=== PATIENT | female | born 1935 | race Caucasian/White ===

== ENCOUNTER 2018-12-18 16:46 | Inpatient (IN) | payer MEDICARE, BC ==
[~2018-12-18] VITALS: Ht 162.6 cm; Wt 68.2 kg
[~2018-12-18 16:46] MED LIST: BAYER CHEWABLE81 MG PO; CATAPRES TTS-20.2 MG TD; CENTRUM COMPLE1 EACH PO; CITRACAL + D E1 EACH PO; COREG 3.1253.125 MG PO; FISH OIL 1,2001 CAP PO; HYDROCHLOROTHIA25 MG PO; PRAVACHOL20 MG PO; TAZTIA XT360 MG PO; TENEX1 MG PO; VASOTEC20 MG PO; VITAMIN B COMPL1 TAB PO; VITAMIN D31000 UNIT PO
[2018-12-18 17:38] LABS: APPEARANCE CLEAR (CLEAR); BILIRUBIN NEGATIVE (NEGATIVE); COLOR STRAW (YELLOW); GLUCOSE NEGATIVE (NEGATIVE); KETONE NEGATIVE (NEGATIVE); NITRITE NEGATIVE (NEGATIVE); PROTEIN NEGATIVE (NEGATIVE); UROBILINOGEN NORMAL (NORMAL)
[2018-12-18 17:40] LABS: BACTERIA FEW /hpf (NONE SEEN); RED CELLS - URINE RARE /hpf (0-5); WHITE CELLS - URINE 0-5 /hpf (0-5)
[2018-12-18 17:58] LABS: BASOPHILS 0.4 % (0-2); EOSINOPHILS 1.2 % (0-7); HEMATOCRIT 34.1 % (36.0-48.0); HEMOGLOBIN 11.9 g/dL (12-16); IMMATURE GRANULOCYTES 0.1 % (0-5); LYMPHOCYTES 24.1 % (15-50); MCHC 34.9 g/dL (31.0-37.0); MCV 91.7 fL (80.0-100.0); MEAN PLATELET VOLUME 9.7 fL (7.4-10.4); MONOCYTES 11.9 % (2-11); NEUTROPHILS 62.3 % (40-80); PLATELET COUNT 190 10x3/uL (130-400); RBC 3.72 10x6/uL (4.00-5.40); RDW 13.5 % (11.5-14.5); WBC 8.1 10x3/uL (4.8-10.8)
[2018-12-18 18:20] LABS: ALBUMIN 3.1 g/dL (3.4-5.0); ANION GAP 12.5 mmol/L (8-16); BILIRUBIN - TOTAL 0.88 mg/dL (0.2-1.3); CALCIUM 8.7 mg/dL (8.5-10.1); CARBON DIOXIDE 24.9 mmol/L (21.0-32.0); CREATININE - SERUM 0.8 mg/dL (0.6-1.3); POTASSIUM - SERUM 3.4 mmol/L (3.5-5.1); PROTEIN - SERUM 6.8 g/dL (6.4-8.2)
--- NOTE | 2018-12-18 19:22 | NUR ---
PT TRANSPORTED TO THE ROOM BY THE TECH AT THIS TIME
--- NOTE | 2018-12-18 19:45 | NUR ---
PATIENT RESTING IN BED WITH FAMILY AT BEDSIDE. PATIENT REQUESTED KLEENEX. PATIENT DENIES OTHER NEEDS AT THIS TIME. BED IN LOWEST POSITION AND CALL LIGHT WITHIN REACH. ENCOURAGED THE PATIENT TO CALL IF SHE HAS NEEDS. WILL CONTINUE TO MONITOR.
--- NOTE | 2018-12-18 20:00 | MORECARE ---
CASE MANAGEMENT DISCHARGE SUMMARY PATIENT: RUDOLPH GODWIN UNIT: [id number] ADM DATE: 12/18/18 AGE: 83 : 35 SEX: F ROOM/BED: D.2202 AUTHOR: YAMILA DOMINGUEZ PHYSICIAN: REFERRING PHYSICIAN: ORION HOBBS MD DATE OF SERVICE: 12/18/18 Discharge Plan Patient Name: RUDOLPH GODWIN Facility: [facility]:[place] : 1935 Planned Disposition: Anticipated Discharge Date: Discharge Date: Expected LOS: Initial Reviewer: [email or web address] Initial Review Date: 12/18/2018 Generated: 12/18/18 9:00 pm Patient Name: RUDOLPH GODWIN Page [id number] at 1999 All edits/amendments must be made on the electronic document DICTATION DATE: 12/18/181999 PRODUCT SAFETY ADMINISTRATOR: ANANDA 12/18/181999 RPT#: [id number] DC DATE: STATUS: ADM IN [facility] [address] [place] [address] END OF REPORT
--- NOTE | 2018-12-18 20:17 | NUR ---
CALLED FOR HEART MONITOR, NO MONITOR AVAILABLE AT THIS TIME. PATIENT ADDED TO WAIT LIST.
[2018-12-18 22:36] VITALS: BP 126/48; BMI 27.1
[2018-12-18] MEDS ORDERED: NORMODYNE / TR100 MG PO (22:47)
[2018-12-18] MEDS ORDERED: NORVASC10 MG PO (22:48)
[2018-12-18] MEDS ORDERED: FEXOFENADINE H180 MG PO (22:49)
[2018-12-18] MEDS ORDERED: MOBIC7.5 MG PO (22:49)
[2018-12-18] MEDS ORDERED: ASCORBIC ACID500 MG PO (22:50)
[2018-12-19 04:00] VITALS: BP 126/64
[2018-12-19 04:49] LABS: BASOPHILS 0.4 % (0-2); EOSINOPHILS 0.7 % (0-7); HEMATOCRIT 31.2 % (36.0-48.0); HEMOGLOBIN 10.8 g/dL (12-16); LYMPHOCYTES 15.8 % (15-50); MCH 31.6 pg (26.0-34.0); MCHC 34.6 g/dL (31.0-37.0); MCV 91.2 fL (80.0-100.0); MEAN PLATELET VOLUME 9.9 fL (7.4-10.4); MONOCYTES 10.6 % (2-11); NEUTROPHILS 72.5 % (40-80); PLATELET COUNT 191 10x3/uL (130-400); RBC 3.42 10x6/uL (4.00-5.40); RDW 13.5 % (11.5-14.5); WBC 8.1 10x3/uL (4.8-10.8)
[2018-12-19 05:25] LABS: ALBUMIN 2.8 g/dL (3.4-5.0); ALKALINE PHOSPHATASE 33 U/L (46-116); ALT (SGPT) 40 U/L (10-68); BILIRUBIN - TOTAL 0.82 mg/dL (0.2-1.3); CALCIUM 8.1 mg/dL (8.5-10.1); CARBON DIOXIDE 23.7 mmol/L (21.0-32.0); CHLORIDE - SERUM 107 mmol/L (98-107); CKMB 0.7 U/L (0.0-3.6); CREATINE KINASE 25 UL (21-215); CREATININE - SERUM 0.7 mg/dL (0.6-1.3); GLUCOSE 115 mg/dL (74-106); POTASSIUM - SERUM 3.4 mmol/L (3.5-5.1); PROTEIN - SERUM 6.3 g/dL (6.4-8.2); SODIUM 142 mmol/L (136-145); TROPONIN-I < 0.017 ng/mL (0.000-0.060); eGFR NON AFRICAN AMERICAN 85 mL/min (90-120)
[2018-12-19 05:27] LABS: CALC OSMOLALITY 285 mosm/kg (275-300); UREA NITROGEN 19 mg/dL (7-18)
[2018-12-19 08:53] VITALS: BP 102/69
--- NOTE | 2018-12-19 09:23 | NUR ---
PATIENT SITTING UP EATING BREAKFAST WITH NO COMPLAINTS OR SIGNS OF DISTRESS. IV INTACT. CALL LIGHT WITHIN REACH.
[2018-12-19 10:44] LABS: % SATURATION 15 % (15-55); IRON 32 ug/dl (35-150); TOTAL IRON BIND CAPACITY 209 ug/dl (260-445); UNSAT IRON BIND CAPACITY 177 ug/dl (150-375)
[2018-12-19 13:25] VITALS: BP 161/59
[2018-12-19 17:26] VITALS: BP 130/72
--- NOTE | 2018-12-19 19:45 | NUR ---
PT SITTING UP IN BED, NO SIGNS OF DISTRESS. ALERT AND ORIENTED. O2 3.4L/NC. LUNGS DIMINISHED ON AUSCULTATION. IV RIGHT HAND SL. PT STATES NO COMPLAINTS OR NEEDS AT THIS TIME. SCDS IN PLACE. HR 75 CONTROLLED AFIB PER TELE. CL IN REACH, WILL CONTINUE TO MONITOR
[2018-12-19 20:00] VITALS: BP 123/65
--- NOTE | 2018-12-19 20:30 | NUR ---
ASSISTED PT TO BATHROOM, PT BECAME SHORT OF BREATH. O2 85%. INSTRUCTED PT TO TAKE DEEP BREATHS THROUGH HER NOSE. BREATHING BECAME MORE EVEN, UNLABORED. O2 90%. WILL CONTINUE TO MONITOR
--- NOTE | 2018-12-19 21:00 | NUR ---
PT O2 85%. PAGED RESP. O2 INCREASED TO 6L/HFNC W/ HUMIDIFICATION. 02 90% WHEN RECHECKED. WILL CONTINUE TO MONITOR
--- NOTE | 2018-12-19 23:00 | NUR ---
PT O2 CONTINUING TO DROP TO 85%. RESP TITRATED O2 UP TO 11L/HFNC TO REACH 90%. PT BREATHING BECAME MORE EVEN, STATED SHE FELT A LITTLE BETTER. STATES IT STILL FELT LIKE SHE COULD NOT TAKE A COMPLETE DEEP BREATH. WILL CONTINUE TO MONITOR
[2018-12-20] VITALS (21 sets, daily range): BP systolic 109–148; BP diastolic 56–83; Ht 162.6 cm; Wt 68.2 kg
--- NOTE | 2018-12-20 00:30 | NUR ---
PAGED WILBERT PAL ENGINEERING TEST SPECIALIST FOR 02 <90%. ORDERS TO CONSULT PULMONOLOGY AND CHEST XRAY
--- NOTE | 2018-12-20 03:00 | NUR ---
PT BECAME MORE SHORT OF BREATH, ANXIOUS. TURNING RED IN THE FACE. STATES IT IS HARDER FOR HER TO TAKE A DEEP BREATH. O2 82% ON 15L NONREBREATHER. PAGED DR. DELGADO. ORDERS TO GET BMP, D DIMER, GIVE K 20MEQ PO AND 40MG LASIX IV, DUONEB RQ4H, BIPAP, AND TRANSFER TO ICU. REPORT CALLED TO PENNIE ALVAREZ FOR ROOM 2306. PT TRANSFERED VIA BED.
--- NOTE | 2018-12-20 04:00 | NUR ---
Received patient from 2202 to 2306, connected to monitor. Patient placed on BiPAP 100% per orders with O2 sat 99%, Furosemide/K+ given as ordered. S1/S2 noted Controlled Afib on telemetry with HR 90. Breathing is labored/dyspneic, crackles noted bilateral upper and mid with diminished lower. Schofield placed, immediate return of concentrated yellow urine. All pulses palpable with cap refill < 3 sec, skin warm/dry. Slight weakness noted all extremities, full ROM all extremities. Patient denies pain or other needs at this time, see flowsheet for details. All VSS and will continue to monitor.
[2018-12-20 04:52] LABS: BASOPHILS 0.2 % (0-2); HEMATOCRIT 36.3 % (36.0-48.0); HEMOGLOBIN 12.5 g/dL (12-16); IMMATURE GRANULOCYTES 0.2 % (0-5); LYMPHOCYTES 10.6 % (15-50); MCHC 34.4 g/dL (31.0-37.0); MCV 92.8 fL (80.0-100.0); MONOCYTES 12.1 % (2-11); NEUTROPHILS 75.9 % (40-80); PLATELET COUNT 229 10x3/uL (130-400); RBC 3.91 10x6/uL (4.00-5.40); RDW 13.7 % (11.5-14.5)
[2018-12-20 05:03] LABS: WBC 13.2 10x3/uL (4.8-10.8)
--- NOTE | 2018-12-20 05:07 | NUR ---
BiPAP decreased to 80% by RT, no s/s of breathing distress at this time.
[2018-12-20 05:23] LABS: ANION GAP 15.4 mmol/L (8-16); CALCIUM 8.7 mg/dL (8.5-10.1); CARBON DIOXIDE 22.5 mmol/L (21.0-32.0); CREATININE - SERUM 0.8 mg/dL (0.6-1.3); MAGNESIUM - SERUM 1.7 mg/dL (1.8-2.4); POTASSIUM - SERUM 3.9 mmol/L (3.5-5.1); THYROID STIMULATING HORMONE 1.49 uIU/mL (0.36-3.74)
[2018-12-20 05:29] LABS: APPEARANCE CLEAR (CLEAR); BILIRUBIN NEGATIVE (NEGATIVE); COLOR DK YELLOW (YELLOW); GLUCOSE NEGATIVE (NEGATIVE); KETONE SMALL mg/dL (NEGATIVE); NITRITE NEGATIVE (NEGATIVE); PROTEIN 2+ mg/dL (NEGATIVE); UROBILINOGEN NORMAL (NORMAL)
[2018-12-20 05:30] LABS: BACTERIA FEW /hpf (NONE SEEN); EPITHELIAL CELLS 0-5 /hpf (0-5); MUCUS <1+ /lpf (NONE SEEN); RED CELLS - URINE 0-5 /hpf (0-5); WHITE CELLS - URINE 0-5 /hpf (0-5)
--- NOTE | 2018-12-20 07:33 | NUR ---
UP IN BED AWAKE ON BIPAP AT THIS TIME. FAMILY AT BEDSIDE. NO ACUTE DISTRES NOETD. PT REQUESTED TO HAVE DRINK OF WATER. TEACHING PERFORMED TO PT THAT SHE CURRENTLY CANNOT TOLERATE REMOVING THE BIPAP SINCE IT IS CURRENTLY AT 80%. CALL LIGHT IN REACH. WILL CONTINUE PLAN OF CARE.
--- NOTE | 2018-12-20 08:57 | NUR ---
UP IN BED AWAKE AT THIS TIME VISITING WITH FAMILY. CURRENTLY ON HIGH FLOW NASAL CANNULA AT 15L, NO SHORTNESS OF BREATH NOTED, OXYGEN SATRUATION AT 97%. NO ACUTE DISTRESS NOTED. WILL CONTINUE PLAN OF CARE.
--- NOTE | 2018-12-20 10:14 | NUR ---
CODE STATUS DISCUSSED WITH FAMILY AND PT. PT STATED SHE WISHES TO REMAIN A FULL CODE.
[2018-12-20 10:21] LABS: FOLATE (FOLIC ACID) - SERUM >20.0 ng/mL (>3.0)
[2018-12-20 10:51] LABS: PRO BNP 2192 pg/mL (0-450); TROPONIN-I < 0.017 ng/mL (0.000-0.060)
--- NOTE | 2018-12-20 11:22 | NUR ---
PER DR DELGADO, USE BIPAP PRN.
--- NOTE | 2018-12-20 13:02 | NUR ---
UP IN BED AWAKE AT THIS TIME. DENIES ANY NEEDS. NO ACUTE DISTERSS NOTED. WILL CONTINUE PLAN OF CARE.
--- NOTE | 2018-12-20 14:38 | NUR ---
RESTING IN BED AT THIS TIME, RESPIRATIONS STEADY AND UNLABORED. NO ACUTE DISTRESS NOTED. AWAKENS EASILY TO VOICE. CALL LIGHT IN REACH. WILL CONTINUE PLAN OF CARE.
--- NOTE | 2018-12-20 16:16 | NUR ---
PT STATED SHE FEELS LIKE SHE NEEDS TO USE TOILET, CALLED EVS FOR A BEDSIDE TOILET, WAITING TO RECIEVE. PT AWAKE IN BED AT THIS TIME. NO ACTUE DISTRESS NTOED. FAMILY AT BEDSIDE. WILL CONTINUE PLAN OF CARE.
--- NOTE | 2018-12-20 17:07 | NUR ---
BEDSIDE TOILET PRIVIDED TO PT, SHE STAES SHE CURRENTLY NO LONGER FEELS THE URGE FOR BOWEL MOVEMENT, BUT MIGHT TRY LATER. FAMILY AT BEDSIDE. NO ACUTE DISTRESS NOTED. CALL LIGHT IN REACH. WILL CONTINUE PLAN OF CARE.
--- NOTE | 2018-12-20 18:33 | MORECARE ---
CASE MANAGEMENT DISCHARGE SUMMARY PATIENT: RUDOLPH GODWIN UNIT: [id number] ADM DATE: 12/18/18 AGE: 83 : 35 SEX: F ROOM/BED: D.2306 AUTHOR: YAMILA DOMINGUEZ PHYSICIAN: REFERRING PHYSICIAN: ORION HOBBS MD DATE OF SERVICE: 12/20/18 Discharge Plan Patient Name: RUDOLPH GODWIN Facility: [facility]:[place] : 1935 Planned Disposition: Home Anticipated Discharge Date: Discharge Date: Expected LOS: Initial Reviewer: [email or web address] Initial Review Date: 12/20/2018 Generated: 12/20/18 7:33 pm Last DP export: 12/18/18 7:00 p Patient Name: RUDOLPH GODWIN Page [id number] at 1833 All edits/amendments must be made on the electronic document DICTATION DATE: 12/20/181832 DIRECTOR FRAUD: ANANDA 12/20/181832 RPT#: [id number] DC DATE: STATUS: ADM IN [facility] [address] [place] [address] END OF REPORT
--- NOTE | 2018-12-20 18:41 | MORECARE ---
CASE MANAGEMENT DISCHARGE SUMMARY PATIENT: RUDOLPH GODWIN UNIT: [id number] ADM DATE: 12/18/18 AGE: 83 : 35 SEX: F ROOM/BED: D.2306 AUTHOR: ANGELICA,DOC PHYSICIAN: REFERRING PHYSICIAN: ORION HOBBS MD DATE OF SERVICE: 12/20/18 Discharge Plan Patient Name: RUDOLPH GODWIN Facility: [facility]:[place] : 1935 Planned Disposition: Home Anticipated Discharge Date: Discharge Date: Expected LOS: Initial Reviewer: [email or web address] Initial Review Date: 12/20/2018 Generated: 12/20/18 7:41 pm Comments DCP- Discharge Planning Updated by [email or web address]: Kristine Sousa on 12/20/18 5:[address] Patient Name: RUDOLPH GODWIN Admission Status: ER Accout number: [id number] Admission Date: 12-18-2018 : 1935 Admission Diagnosis: Attending: ORION HOBBS Current LOS: 2 Anticipated DC Date: Planned Disposition: Home Primary Insurance: MEDICARE A & B Discharge Planning Comments: CM met with patient at bedside. Patient states she plans on returning to her home with her after discharge. Patient states that she has walker and shower chair in the home. Patient states she has had [facility] in the past. Patient denies any discharge needs at this time. CM will continue to follow and assist as needed with discharge planning / needs. Benzol Still Operator: Kristine Sousa DCPIA - Discharge Planning Initial Assessment Updated by [email or web address]: Kristine Sousa on 12/20/18 6:33 pm * Is the patient Alert and Oriented? Yes * How many steps to enter\exit or inside your home? * PCP Kimberly Figueroa- [facility] * Pharmacy [facility] * Preadmission Environment Home with Family * ADLs Independent * Equipment Walker * Other Equipment shower chair * List name and contact numbers for known caregivers / representatives who currently or will assist patient after discharge: Sondra Lizarraga - daughter- [phone] * Verbal permission to speak to the caregivers and representatives has been obtained from the patient. N/A * Community resources currently utilized None * Additional services required to return to the preadmission environment? No * Can the patient safely return to the preadmission environment? Yes * Has this patient been hospitalized within the prior 30 days at any hospital? No Last DP export: 12/20/18 5:33 p Patient Name: RUDOLPH GODWIN Page [id number] at 1841 All edits/amendments must be made on the electronic document DICTATION DATE: 12/20/181839 BAG MACHINE SET UP OPERATOR: ANANDA 12/20/181839 RPT#: [id number] DC DATE: STATUS: ADM IN [facility] [address] [place] [address] END OF REPORT
--- NOTE | 2018-12-20 19:40 | NUR ---
RECEIVED PATIENT FROM DAY SHIFT RN. MARIO Colin3. JOÃO. DENIES PAIN AT THIS TIME. INITIAL SHIFT ASSESSMENT COMPLETED, SEE FLOWSHEET. VSS. WILL MONITOR CLOSELY THROUGH OUT THE NIGHT.
--- NOTE | 2018-12-20 21:00 | NUR ---
PM MEDS GIVEN PEER MD ORDERS, SEE JAN. VSS. DAUGHTER AT BEDSIDE. WILL CTM.
--- NOTE | 2018-12-20 23:00 | NUR ---
NEW MED ORDERS RECEIVED AFTER PHARMACY HOURS, WAITING ON MACHINE TAILER. SHIFT REASSESSMENT COMPLETED, SEE FLOWSHEET. VSS. PATIENT SLEEPING AT THIS TIME. WILL CONTINUE TO MONITOR CLOSELY.
[2018-12-21] VITALS (25 sets, daily range): BP systolic 110–150; BP diastolic 55–105
--- NOTE | 2018-12-21 01:10 | NUR ---
NO ACUTE CHANGES NOTED. VSS. PATIENT SLEEPING AT THIS TIME. WILL CTM.
--- NOTE | 2018-12-21 03:25 | NUR ---
REASSESSMENT COMPLETED, SEE FLOWSHEET. NO ACUTE CHANGES NOTED. VSS. WILL CTM.
[2018-12-21 03:50] LABS: BASOPHILS 0.2 % (0-2); EOSINOPHILS 2.5 % (0-7); HEMATOCRIT 32.4 % (36.0-48.0); HEMOGLOBIN 11.1 g/dL (12-16); IMMATURE GRANULOCYTES 0.1 % (0-5); MCH 31.5 pg (26.0-34.0); MCHC 34.3 g/dL (31.0-37.0); MEAN PLATELET VOLUME 9.6 fL (7.4-10.4); NEUTROPHILS 72.2 % (40-80); PLATELET COUNT 207 10x3/uL (130-400); RBC 3.52 10x6/uL (4.00-5.40); RDW 13.6 % (11.5-14.5)
[2018-12-21 04:01] LABS: WBC 8.8 10x3/uL (4.8-10.8)
[2018-12-21 04:09] LABS: ANION GAP 14.7 mmol/L (8-16); CALCIUM 8.1 mg/dL (8.5-10.1); CARBON DIOXIDE 23.8 mmol/L (21.0-32.0); CREATININE - SERUM 0.9 mg/dL (0.6-1.3); MAGNESIUM - SERUM 1.5 mg/dL (1.8-2.4); PHOSPHOROUS 2.1 mg/dL (2.5-4.9); POTASSIUM - SERUM 3.5 mmol/L (3.5-5.1)
--- NOTE | 2018-12-21 05:34 | NUR ---
NO ACUTE CHANGES NOTED. VSS. PATIENT HAS SLEPT OFF AND ON THROUGH OUT THE NIGHT. DAUGHTER IN WAITING ROOM HAS STOPPED IN TO CHECK ON PATIENT A COUPLE OF TIMES LAST NIGHT. WILL CTM.
--- NOTE | 2018-12-21 13:07 | NUR ---
Nutrition follow-up: Diet: low sodium PO intake 25-50% of meals Labs reviewed Wt: 170# continues to diurese RDN following.
--- NOTE | 2018-12-21 13:38 | NUR ---
0700 AWAKE NO C/O PAIN ASSESSMENT COMPLETE EXPIRATORY WHEEZING NOTED 02 AT 11L HIGH FLOW
--- NOTE | 2018-12-21 13:39 | NUR ---
0900 RESTING QUIETLY AFTER BREAKFAST
--- NOTE | 2018-12-21 13:40 | NUR ---
1100 URINGE SPECIMEN COLLECTED FOR CULTLURE AND SENT TO LAB
--- NOTE | 2018-12-21 13:41 | NUR ---
1300 VISITING WITH GRANDDAUGHTER AT BEDSIDE NO DISTRESS NOTED
--- NOTE | 2018-12-21 15:25 | NUR ---
1500 ASSISTED UP TO BSC PASSING FLALTUS NO BM NOTED ASSISTED BACK TO BED
--- NOTE | 2018-12-21 19:00 | NUR ---
RECEIVED PATIENT FROM DAY SHIFT RN, RESP AT BEDSIDE GIVING A BREATHING TREATMENT. INITIAL SHIFT ASSESSMENT COMPLETED, SEE FLOWSHEET. VSS. WILL MONITOR CLOSELY THROUGH OUT THE NIGHT.
--- NOTE | 2018-12-21 19:21 | NUR ---
1830 STARTED LASIX GTT AT 10 ML/HOUR
--- NOTE | 2018-12-21 21:00 | NUR ---
NO ACUTE CHANGES NOTED. VSS. PM MEDS GIVEN PER MD ORDERS, SEE MAR. FAMILY AT BEDSIDE. WILL CTM.
--- NOTE | 2018-12-21 23:00 | NUR ---
PATIENT RESTING BUT AWAKE, DENIES ANY PAIN OR DISCOMFORT AT THIS TIME. REASSESSMENT COMPLETED, SEE FLOWSHEET. VSS. WILL CTM.
[2018-12-22] VITALS (24 sets, daily range): BP systolic 91–136; BP diastolic 44–115
--- NOTE | 2018-12-22 01:10 | NUR ---
PATIENT APPEARS TO BE RESTING COMFORTABLY. NO ACUTE CHANGES NOTED. VSS. WILL CTM.
--- NOTE | 2018-12-22 03:23 | NUR ---
REASSESSMENT COMPLETED, SEE FLOWSHEET. VSS. PATIENT APPEARS TO BE RESTING COMFORTABLY. WILL CTM.
[2018-12-22 04:45] LABS: BASOPHILS 0.5 % (0-2); EOSINOPHILS 4.2 % (0-7); HEMATOCRIT 34.7 % (36.0-48.0); HEMOGLOBIN 12.1 g/dL (12-16); IMMATURE GRANULOCYTES 0.1 % (0-5); LYMPHOCYTES 18.6 % (15-50); MCH 31.7 pg (26.0-34.0); MCHC 34.9 g/dL (31.0-37.0); MCV 90.8 fL (80.0-100.0); MEAN PLATELET VOLUME 9.5 fL (7.4-10.4); MONOCYTES 9.7 % (2-11); NEUTROPHILS 66.9 % (40-80); RBC 3.82 10x6/uL (4.00-5.40); RDW 13.5 % (11.5-14.5)
[2018-12-22 04:52] LABS: PLATELET COUNT 274 10x3/uL (130-400)
--- NOTE | 2018-12-22 05:00 | NUR ---
PATIENT APPEARS TO BE RESTING COMFORTABLY. VSS. NO ACUTE CHANGES NOTED. SON AT BEDSIDE. WILL CTM.
[2018-12-22 05:05] LABS: ANION GAP 13.6 mmol/L (8-16); CALCIUM 8.1 mg/dL (8.5-10.1); CARBON DIOXIDE 26.4 mmol/L (21.0-32.0); CREATININE - SERUM 0.9 mg/dL (0.6-1.3); MAGNESIUM - SERUM 1.6 mg/dL (1.8-2.4); PHOSPHOROUS 2.3 mg/dL (2.5-4.9)
--- NOTE | 2018-12-22 08:34 | NUR ---
0700 PT RECIEVED IN BED, ALERT AND ORIENTED O2 9L VIA HIGH FLOW CANNULA, HR 70S CONTROLLED AFIB, VSS, DENIES PAIN R HAND PIV WITH LASIX 10ML/HR, TANNER DRAINING YELLOW URINE, REPOSITIONED, DENIES NEEDS 0830 TOOK AM MEDS AND ATE 50% BREAKFAST WITHOUT DIFFICULTY, CLARIFIED LASIX ORDER WITH DR DELGADO AND DCD Q12 LASIX, FAMILY AT BEDSIDE AND DENY ANY NEEDS, WILL CONTINUE TO MONITOR
--- NOTE | 2018-12-22 16:57 | NUR ---
1100 PT REPOSITIONED, DENIES PAIN AND ALL NEEDS, WEANING O2 TOLERATED 1300 ATE 75% LUNCH, TOLERATED WELL, REPOSITIONED 1500 REPOSITIONED, DENIES ALL NEEDS, PARTIAL LINEN CHANGE, WILL CONTINUE TO MONITOR 1600 FAMILY HERE FOR VISITATION BUT PT ASLEEP SO STATED THEY WOULD BE LEAVING AND ANOTHER FAMILY MEMBER WOULD BE HERE SHORTLY 1700 REPOSITIONED AND DINNER TRAY SERVED, DENIES PAIN AND ALL NEEDS, WILL CONTINUE TO MONITOR
--- NOTE | 2018-12-22 19:00 | NUR ---
RECEIVED PATIENT FROM DAY SHIFT RN, MARIO X3. JOÃO. DENIES ANY PAIN AT THIS TIME. INITIAL SHIFT ASSESSMENT COMPLETED, SEE FLOWSHEET. VSS. PATIENT PLEASANT AND COOPERATIVE. WILL MONITOR CLOSELY THROUGH OUT THE NIGHT.
--- NOTE | 2018-12-22 21:00 | NUR ---
PM MEDS GIVEN PER MD ORDERS, SEE JAN. DAUGHTER AT BEDSIDE. VSS. WILL CTM.
--- NOTE | 2018-12-22 23:26 | NUR ---
NO ACUTE CHANGES NOTED. VSS. REASSESSMENT COMPLETED, SEE FLOWSHEET. WILL CTM.
[2018-12-23] VITALS (24 sets, daily range): BP systolic 96–157; BP diastolic 52–96
--- NOTE | 2018-12-23 01:00 | NUR ---
NO ACUTE CHANGES NOTED. PATIENT STILL SLEEPING AT THIS TIME. WILL CTM.
--- NOTE | 2018-12-23 03:00 | NUR ---
REASSESSMENT COMPLETED, SEE FLOWSHEET. VSS. PATIENT APPEARS TO BE RESTING COMFORTABLY. WILL CTM.
[2018-12-23 03:10] LABS: MYCOPLASMA PNEUMO IGG 369 U/mL (0-99)
[2018-12-23 03:58] LABS: BASOPHILS 0.4 % (0-2); HEMATOCRIT 33.8 % (36.0-48.0); HEMOGLOBIN 12.1 g/dL (12-16); IMMATURE GRANULOCYTES 0.2 % (0-5); LYMPHOCYTES 23.3 % (15-50); MCH 31.9 pg (26.0-34.0); MCHC 35.8 g/dL (31.0-37.0); MCV 89.2 fL (80.0-100.0); MEAN PLATELET VOLUME 9.2 fL (7.4-10.4); MONOCYTES 12.2 % (2-11); NEUTROPHILS 57.9 % (40-80); PLATELET COUNT 252 10x3/uL (130-400); RBC 3.79 10x6/uL (4.00-5.40); RDW 13.3 % (11.5-14.5)
[2018-12-23 04:12] LABS: CALCIUM 7.7 mg/dL (8.5-10.1); CARBON DIOXIDE 29.4 mmol/L (21.0-32.0); CREATININE - SERUM 0.9 mg/dL (0.6-1.3); MAGNESIUM - SERUM 1.4 mg/dL (1.8-2.4); PHOSPHOROUS 2.7 mg/dL (2.5-4.9); POTASSIUM - SERUM 3.4 mmol/L (3.5-5.1)
--- NOTE | 2018-12-23 05:00 | NUR ---
PATIENT AWAKE, STATES THAT SHE SLEPT GOOD LAST NIGHT. VSS. WILL CTM.
[2018-12-23 08:19] LABS: ANA REFLEX - DIRECT Negative (Negative)
--- NOTE | 2018-12-23 09:19 | NUR ---
Nutrition follow-up: Diet: low sodium PO Intake 50-75% of meals; improved Labs reviewed Wt: 158# May move to floor today. RDN following.
--- NOTE | 2018-12-23 09:21 | NUR ---
0700 AWAKE, ALERT DENIES PAIN BREAKFAST TRAY SERVED
--- NOTE | 2018-12-23 09:30 | NUR ---
0900 APPETITE FAIR DENIES PAIN REPOSITIONED IN BED PULLED UP STATES SHE WANTS NAP
--- NOTE | 2018-12-23 19:30 | NUR ---
RECIEVED CARE OF PT, ASSESSMENT PER FLOWSHEET. PT ALERT AND ORIENTED, ON 6L HFNC, PPP, TANNER CATH PATENT, A-FIB ON MONITOR, PT POSITIONED FOR COMFORT SUPPORTED WITH PILLOWS, VSS.
--- NOTE | 2018-12-23 21:50 | NUR ---
PT DAUGHTER AT BEDSIDE, PT ABLE TO VISIT EASILY IN NO APPARENT DISTRESS, FRESH WATER PROVIDED PER REQUEST, CONT POC.
--- NOTE | 2018-12-23 23:30 | NUR ---
REASSESSMENT PER FLOWSHEET, NO ACUTE CHANGES NOTED, RHYTHM VARIABLE BETWEEN ATRIAL FIB AND FLUTTER, VSS, CONT TO MONITOR.
[2018-12-24] VITALS (15 sets, daily range): BP systolic 99–136; BP diastolic 53–94
--- NOTE | 2018-12-24 01:45 | NUR ---
TURNED DOWN TO 4L PER RT, PT RESTING IN NO APPARENT DISTRES, VSS.
--- NOTE | 2018-12-24 03:53 | NUR ---
PT RESTING IN BED WITH EYES CLOSED, VSS, CONT POC.
[2018-12-24 04:20] LABS: BASOPHILS 0.5 % (0-2); HEMATOCRIT 35.6 % (36.0-48.0); HEMOGLOBIN 12.8 g/dL (12-16); IMMATURE GRANULOCYTES 0.3 % (0-5); LYMPHOCYTES 24.6 % (15-50); MCH 31.7 pg (26.0-34.0); MCV 88.1 fL (80.0-100.0); MEAN PLATELET VOLUME 9.1 fL (7.4-10.4); NEUTROPHILS 58.6 % (40-80); PLATELET COUNT 268 10x3/uL (130-400); RBC 4.04 10x6/uL (4.00-5.40); RDW 12.9 % (11.5-14.5); WBC 7.9 10x3/uL (4.8-10.8)
[2018-12-24 04:35] LABS: ANION GAP 11.6 mmol/L (8-16); CALCIUM 8.2 mg/dL (8.5-10.1); CARBON DIOXIDE 29.6 mmol/L (21.0-32.0); CREATININE - SERUM 0.9 mg/dL (0.6-1.3); MAGNESIUM - SERUM 1.6 mg/dL (1.8-2.4); POTASSIUM - SERUM 3.2 mmol/L (3.5-5.1)
--- NOTE | 2018-12-24 05:24 | NUR ---
PT POSITIONED FOR COMFORT SUPPORTED WITH PILLOWS, DENIES ANY NEEDS AT THIS TIME, CALL LIGHT IN REACH, BED LOW.
--- NOTE | 2018-12-24 14:37 | NUR ---
CALLING REPORT TO MED III NURSE.
--- NOTE | 2018-12-24 15:00 | NUR ---
RECIEVED TO ROOM 1206 FROM ICU VIA WC. SL TO R UPPER ARM. O2 2.5L NC IN USE. O2 SAT 96%. FAMILY AT BEDSIDE. DENIES ANY NEEDS AT THIS TIME.
--- NOTE | 2018-12-24 18:00 | NUR ---
VISITING WITH FAMILY MEMBERS AT BEDSIDE. O2 SAT CHECKED PER PATIENT REQUEST. O2 SAT 96%. DENIES ANY FURTHER NEEDS AT THIS TIME.
--- NOTE | 2018-12-24 20:25 | NUR ---
PATIENT RESTING BED WITH C/O HER NOSE BEING DRY FROM THE O2. I TOLD THE PATIENT THAT WE WOULD ADD A HUMIDIFIER TO HER OXYGEN TO HELP. PATIENT VERBALIZED UNDERSTANDING. PATIENT DENIES OTHER NEEDS AT THIS TIME. BED IN LOWEST POSITION AND CALL LIGHT WITHIN REACH. ENCOURAGED THE PATIENT TO CALL IF SHE HAS NEEDS. WILL CONTINUE TO MONITOR.
[2018-12-25] VITALS: BP 131/63
--- NOTE | 2018-12-25 03:26 | NUR ---
PATIENT RESTING IN BED WITH EYES CLOSED AND NO S/S OF DISTRESS. BED IN LOWEST POSITION AND CALL LIGHT WITHIN REACH. WILL CONTINUE TO MONITOR.
[2018-12-25 04:00] VITALS: BP 129/52
[2018-12-25 07:13] LABS: ANION GAP 12.6 mmol/L (8-16); CALCIUM 8.7 mg/dL (8.5-10.1); CARBON DIOXIDE 29.1 mmol/L (21.0-32.0); CREATININE - SERUM 0.8 mg/dL (0.6-1.3); MAGNESIUM - SERUM 1.7 mg/dL (1.8-2.4)
[2018-12-25 07:14] LABS: POTASSIUM - SERUM 3.7 mmol/L (3.5-5.1)
[2018-12-25 08:05] VITALS: BP 116/43
--- NOTE | 2018-12-25 08:14 | NUR ---
PT ALERT X 4. BREATH SOUNDS CLEAR BILAT, PT COUGHS WITH DEEP BREATH, 2.5L O2 PER NC. TELEMETRY IN PLACE. IV TO RIGHT UPPER ARM, SALINE LOCKED, DRESSING CLEAN DRY AND INTACT. TRACE EDEMA TO BLE. PT REPORTING NO PAIN AT THIS TIME. BREAKFAST IN ROOM. BED LOW, CALL LIGHT IN REACH, NO OTHER NEEDS AT THIS TIME.
[2018-12-25 16:00] VITALS: BP 131/50
--- NOTE | 2018-12-25 19:38 | NUR ---
PATIENT RESTING IN BED WITH FAMILY AT BEDSIDE. NO S/S OF DISTRESS. PATIENT DENIES NEEDS AT THIS TIME. BED IN LOWEST POSITION AND CALL LIGHT WITHIN REACH. ENCOURAGED THE PATIENT TO CALL IF SHE HAS NEEDS. WILL CONTINUE TO MONITOR.
--- NOTE | 2018-12-26 02:17 | NUR ---
PATIENT RESTING IN BED WITH EYES CLOSED AND NO S/S OF DISTRESS. BED IN LOWEST POSITION AND CALL LIGHT WITHIN REACH. WILL CONTINUE TO MONITOR.
[2018-12-26 06:08] LABS: BASOPHILS 0.7 % (0-2); EOSINOPHILS 5.1 % (0-7); IMMATURE GRANULOCYTES 0.3 % (0-5); LYMPHOCYTES 21.3 % (15-50); MCH 31.3 pg (26.0-34.0); MCHC 35.3 g/dL (31.0-37.0); MCV 88.8 fL (80.0-100.0); MEAN PLATELET VOLUME 9.1 fL (7.4-10.4); MONOCYTES 10.5 % (2-11); NEUTROPHILS 62.1 % (40-80); PLATELET COUNT 291 10x3/uL (130-400); RBC 3.83 10x6/uL (4.00-5.40); WBC 7.4 10x3/uL (4.8-10.8)
[2018-12-26 06:30] LABS: ANION GAP 11.4 mmol/L (8-16); CARBON DIOXIDE 30.5 mmol/L (21.0-32.0); CREATININE - SERUM 0.8 mg/dL (0.6-1.3); MAGNESIUM - SERUM 2.1 mg/dL (1.8-2.4); POTASSIUM - SERUM 3.9 mmol/L (3.5-5.1)
[2018-12-26 08:38] VITALS: BP 110/44
[2018-12-26 12:30] VITALS: BP 172/60
[2018-12-26 17:03] VITALS: BP 140/50
--- NOTE | 2018-12-26 21:15 | NUR ---
LYING IN BED. ALERT AND ORIENTED X4. RESP EVEN AND NONLABORED. O2 @ 2.5L/HFC. DENIES COUGH. BBS CTA BUT DIMINISHED IN BLL. TANNER CATH PATENT AND DRAINING CLEAR YELLOW URINE. NO EDEMA NOTED. BRUISES NOTED TO BUE. SALINE LOCK NOTED TO RT UPPER ARM. DENIES PAIN. TELEMETRY SHOWS SB WITH RATE OF 50S. SR ELEVATED X2. CL IN REACH.
[2018-12-26 22:01] VITALS: BP 138/85
[2018-12-27] VITALS: BP 163/56
--- NOTE | 2018-12-27 03:27 | NUR ---
RESTING QUIETLY WITH EYES CLOSED. RESP NONLABORED. NO DISTRESS. CL IN REACH.
[2018-12-27 05:59] VITALS: BP 151/42
--- NOTE | 2018-12-27 07:00 | NUR ---
RECEIVED REPORT. ASSUMED CARE OF PATIENT. RESTING IN BED WITH EYES OPEN. CALL LIGHT WITHIN REACH. DENIES NEEDS. NO DISTRESS.
[2018-12-27 07:23] LABS: ANION GAP 10.2 mmol/L (8-16); CALCIUM 9.3 mg/dL (8.5-10.1); CARBON DIOXIDE 30.6 mmol/L (21.0-32.0); CREATININE - SERUM 0.8 mg/dL (0.6-1.3); MAGNESIUM - SERUM 2.1 mg/dL (1.8-2.4); PHOSPHOROUS 2.9 mg/dL (2.5-4.9); POTASSIUM - SERUM 3.8 mmol/L (3.5-5.1)
[2018-12-27 08:16] LABS: ALBUMIN 2.9 g/dL (3.4-5.0); BILIRUBIN - TOTAL 0.47 mg/dL (0.2-1.3); PROTEIN - SERUM 6.9 g/dL (6.4-8.2)
--- NOTE | 2018-12-27 09:25 | MORECARE ---
CASE MANAGEMENT DISCHARGE SUMMARY PATIENT: RUDOLPH GODWIN UNIT: [id number] ADM DATE: 12/18/18 AGE: 83 : 35 SEX: F ROOM/BED: D.1206 AUTHOR: ANGELICA,DOC PHYSICIAN: REFERRING PHYSICIAN: ORION HOBBS MD DATE OF SERVICE: 12/27/18 Discharge Plan Patient Name: RUDOLPH GODWIN Facility: [facility]:[place] : 1935 Planned Disposition: Home Anticipated Discharge Date: Discharge Date: Expected LOS: Initial Reviewer: [email or web address] Initial Review Date: 12/20/2018 Generated: 12/27/18 10:25 am Comments DCP- Discharge Planning Updated by [email or web address]: Jennie Davies on 12/27/18 8:[address] Patient Name: RUDOLPH GODWIN Admission Status: ER Accout number: [id number] Admission Date: 12-18-2018 : 1935 Admission Diagnosis:PNEUMONIA, UNSPECIFIED ORGANISM Attending: ORION HOBBS Current LOS: 9 Anticipated DC Date: Planned Disposition: Home Primary Insurance: MEDICARE A & B Discharge Planning Comments: CM MET WITH PATIENT ABOUT DC PLANS. SHE STATES WANTS TO WAIT FOR HER PT EVAL AND THEN DECIDE. CM WILL FOLLOW UP WITH HER. IM SIGNED Finish Grinder: Jennie Davies DCP- Discharge Planning Updated by [email or web address]: Kristine Sousa on 12/20/18 5:[address] Patient Name: RUDOLPH GODWIN Admission Status: ER Accout number: [id number] Admission Date: 12-18-2018 : 1935 Admission Diagnosis: Attending: ORION HOBBS Current LOS: 2 Anticipated DC Date: Planned Disposition: Home Primary Insurance: MEDICARE A & B Discharge Planning Comments: CM met with patient at bedside. Patient states she plans on returning to her home with her after discharge. Patient states that she has walker and shower chair in the home. Patient states she has had [facility] in the past. Patient denies any discharge needs at this time. CM will continue to follow and assist as needed with discharge planning / needs. Finish Grinder: Kristine Sousa DCPIA - Discharge Planning Initial Assessment Updated by [id number]: Kristinerob Sousa on 12/20/18 6:33 pm * Is the patient Alert and Oriented? Yes * How many steps to enter\exit or inside your home? * PCP Kimberly Figueroa- [facility] * Pharmacy [facility] * Preadmission Environment Home with Family * ADLs Independent * Equipment Walker * Other Equipment shower chair * List name and contact numbers for known caregivers / representatives who currently or will assist patient after discharge: Sondra Lizarraga - daughter- [phone] * Verbal permission to speak to the caregivers and representatives has been obtained from the patient. N/A * Community resources currently utilized None * Additional services required to return to the preadmission environment? No * Can the patient safely return to the preadmission environment? Yes * Has this patient been hospitalized within the prior 30 days at any hospital? No Coverage Notice Reviewer: [email or web address] Amy Davies Notice Issued Date-Time: 12/27/2018 9:19 Notice Type: IM Discharge Notice Notice Delivered To: Patient Relationship to Patient: Self Shearer Helper Name: Delivery Method: HAND - Hand Delivered Radha Days: Prior Verbal Notification: Recipient Understood Notice: Yes Recipient Signature: Yes Med Rec Note Co-signed by Attending: Coverage Notice Comment: Last DP export: 12/20/18 5:41 p Patient Name: RUDOLPH GODWIN Page [id number] at 0925 All edits/amendments must be made on the electronic document DICTATION DATE: 12/27/18924 WINE STEWARD/STEWARDESS: ANANDA 12/27/18924 RPT#: [id number] DC DATE: STATUS: ADM IN [facility] [address] [place] [address] END OF REPORT
[2018-12-27 09:43] VITALS: BP 144/50
--- NOTE | 2018-12-27 09:51 | NUR ---
EXPLAINED BLADDER TRAINING TO PATIENT AND WILL BLADDER TRAIN BEFORE REMOVING TANNER CATHETER.
--- NOTE | 2018-12-27 10:48 | NUR ---
TANNER CATHETER CLAMPED AT THIS TIME. PREPARING FOR TANNER D/C.
[2018-12-27 11:45] VITALS: BP 150/52
--- NOTE | 2018-12-27 12:12 | NUR ---
PATIENT IN BED. FAMILY AT BEDSIDE. QUESTIONING ABOUT WHY CARDIOLOGY HAS NOT BEEN BACK TO SEE PATIENT. NO ECHO REPORT AVAILABLE ON [facility]. ONLY ONE CONSULTATION NOTE FROM 12/19/18. WILL CALL CARDIOLOGY AND ASK IF THEY ARE GOING TO SEE PATIENT.
--- NOTE | 2018-12-27 12:16 | NUR ---
UNCLAMMPED TANNER, 200 CC RETURNED. TANNER AGAIN CLAMMPED AT THIS TIME.
--- NOTE | 2018-12-27 12:36 | NUR ---
Pt is on a Cardiac diet with 50% average po intake Pt reports when first admitted she had no appetite however it is improving and she is eating ~50%. Encouraged >/=50% intake of meals as well as 1 Ensure per day Weight 150lb standing today-no other standing weights available Pt reports UBW is 156lb RD following
--- NOTE | 2018-12-27 13:13 | NUR ---
SPOKE WITH GENESIS AT [facility] AND WILL PUT A NOTE IN FOR THE NURSE TO SEE IF CARDIOLOGY IS GOING TO SEE THE PATIENT NO NOTES SINCE 12/19/18.
--- NOTE | 2018-12-27 14:25 | NUR ---
CATHETER RELEASED AND RECLAMPED. 230 RECIEVED. NO DISTRESS.
--- NOTE | 2018-12-27 16:34 | NUR ---
TANNER CATHETER REMOVED WITHOUT DIFFICULTY. TOELRATED REMOVAL OF FC WELL. 700 ML IN TANNER BAG. NO DISTRES.
--- NOTE | 2018-12-27 18:00 | NUR ---
BED BATH AND LINEN CHANGE PROVIDED. CALL LIGHT WITHIN REACH. NO DISTRESS.
[2018-12-27 19:54] VITALS: BP 138/54
--- NOTE | 2018-12-27 20:29 | NUR ---
PT UP TO TOILET WITH STANDBY ASSIST. URINARY OUTPUT NOTED. PT RECEIVED MEDICATIONS PER MAR, TOLERTED WELL. WILL CONTINUE TO OBSERVE. CALL LIGHT IN REACH.
--- NOTE | 2018-12-28 01:20 | NUR ---
PATIENT RESTING IN BED WITH EYES CLOSED AND NO S/S OF DISTRESS. BED IN LOWEST POSITION AND CALL LIGHT WITHIN REACH. WILL CONTINUE TO MONITOR.
[2018-12-28 05:12] VITALS: BP 146/41
[2018-12-28 06:58] LABS: EOSINOPHILS 4.4 % (0-7); HEMATOCRIT 33.8 % (36.0-48.0); HEMOGLOBIN 11.9 g/dL (12-16); IMMATURE GRANULOCYTES 0.2 % (0-5); LYMPHOCYTES 27.5 % (15-50); MCH 31.2 pg (26.0-34.0); MCHC 35.2 g/dL (31.0-37.0); MCV 88.7 fL (80.0-100.0); MEAN PLATELET VOLUME 9.1 fL (7.4-10.4); MONOCYTES 10.2 % (2-11); NEUTROPHILS 56.7 % (40-80); PLATELET COUNT 291 10x3/uL (130-400); RBC 3.81 10x6/uL (4.00-5.40); RDW 12.8 % (11.5-14.5); WBC 5.9 10x3/uL (4.8-10.8)
[2018-12-28 07:14] LABS: ALBUMIN 2.9 g/dL (3.4-5.0); ALKALINE PHOSPHATASE 40 U/L (46-116); ALT (SGPT) 18 U/L (10-68); BILIRUBIN - TOTAL 0.48 mg/dL (0.2-1.3); CALC OSMOLALITY 273 mosm/kg (275-300); CALCIUM 9.2 mg/dL (8.5-10.1); CARBON DIOXIDE 29.3 mmol/L (21.0-32.0); CHLORIDE - SERUM 101 mmol/L (98-107); CREATININE - SERUM 0.7 mg/dL (0.6-1.3); GLUCOSE 106 mg/dL (74-106); POTASSIUM - SERUM 4.1 mmol/L (3.5-5.1); PROTEIN - SERUM 6.7 g/dL (6.4-8.2); SODIUM 136 mmol/L (136-145); UREA NITROGEN 18 mg/dL (7-18); eGFR NON AFRICAN AMERICAN 85 mL/min (90-120)
[2018-12-28 08:27] VITALS: BP 162/55
--- NOTE | 2018-12-28 09:42 | NUR ---
AM MEDS GIVEN AT THIS TIME. PT IN BED, A/O X4, RESP EVEN AND NONLABORED ON 1L. RT FA IV SL. PT DENIES ANY NEEDS AT THIS TIME. CALL LIGHT IN REACH, BEDSIDE RAILS X2, NAD NOTED, WILL CONTINUE TO MONITOR.
[2018-12-28 11:16] VITALS: BP 159/58
[2018-12-28 15:14] VITALS: BP 142/89
--- NOTE | 2018-12-28 15:42 | MORECARE ---
CASE MANAGEMENT DISCHARGE SUMMARY PATIENT: RUDOLPH GODWIN UNIT: [id number] ADM DATE: 12/18/18 AGE: 83 : 35 SEX: F ROOM/BED: D.1206 AUTHOR: ANGELICA,DOC PHYSICIAN: REFERRING PHYSICIAN: ORION HOBBS MD DATE OF SERVICE: 12/28/18 Discharge Plan Patient Name: RUDOLPH GODWIN Facility: [facility]:[place] : 1935 Planned Disposition: Home Anticipated Discharge Date: Discharge Date: Expected LOS: Initial Reviewer: [email or web address] Initial Review Date: 12/20/2018 Generated: 12/28/18 4:42 pm Comments DCP- Discharge Planning Updated by [id number]: Jennie Davies on 12/27/18 8:[address] Patient Name: RDUOLPH GODWIN Admission Status: ER Accout number: [id number] Admission Date: 12-18-2018 : 1935 Admission Diagnosis:PNEUMONIA, UNSPECIFIED ORGANISM Attending: ORION HOBBS Current LOS: 9 Anticipated DC Date: Planned Disposition: Home Primary Insurance: MEDICARE A & B Discharge Planning Comments: CM MET WITH PATIENT ABOUT DC PLANS. SHE STATES WANTS TO WAIT FOR HER PT EVAL AND THEN DECIDE. CM WILL FOLLOW UP WITH HER. IM SIGNED Golf Course Assistant: Jennie Davies DCP- Discharge Planning Updated by [email or web address]: Kristine Sousa on 12/20/18 5:[address] Patient Name: RUDOLPH GODWIN Admission Status: ER Accout number: [id number] Admission Date: 12-18-2018 : 1935 Admission Diagnosis: Attending: ORION HOBBS Current LOS: 2 Anticipated DC Date: Planned Disposition: Home Primary Insurance: MEDICARE A & B Discharge Planning Comments: CM met with patient at bedside. Patient states she plans on returning to her home with her after discharge. Patient states that she has walker and shower chair in the home. Patient states she has had [facility] in the past. Patient denies any discharge needs at this time. CM will continue to follow and assist as needed with discharge planning / needs. Golf Course Assistant: Kristine Sousa DCPIA - Discharge Planning Initial Assessment Updated by [id number]: Kristinerob Sousa on 12/20/18 6:33 pm * Is the patient Alert and Oriented? Yes * How many steps to enter\exit or inside your home? * PCP Kimberly Figueroa- [facility] * Pharmacy [place] * Preadmission Environment Home with Family * ADLs Independent * Equipment Walker * Other Equipment shower chair * List name and contact numbers for known caregivers / representatives who currently or will assist patient after discharge: Sondra Lizarraga - daughter- [phone] * Verbal permission to speak to the caregivers and representatives has been obtained from the patient. N/A * Community resources currently utilized None * Additional services required to return to the preadmission environment? No * Can the patient safely return to the preadmission environment? Yes * Has this patient been hospitalized within the prior 30 days at any hospital? No Coverage Notice Reviewer: [id number] Amy Davies Notice Issued Date-Time: 12/27/2018 9:19 Notice Type: IM Discharge Notice Notice Delivered To: Patient Relationship to Patient: Self Motion Picture Equipment Machinist Name: Delivery Method: HAND - Hand Delivered Radha Days: Prior Verbal Notification: Recipient Understood Notice: Yes Recipient Signature: Yes Med Rec Note Co-signed by Attending: Coverage Notice Comment: Last DP export: 12/27/18 8:25 am Patient Name: RUDOLPH GODWIN Page 20789 at 1542 All edits/amendments must be made on the electronic document DICTATION DATE: 12/28/18 154 ENGINEER THIRD ASSISTANT: ANANDA 12/28/18 1542 RPT#: [id number] DC DATE: STATUS: ADM IN [facility] [address] [place] [address] END OF REPORT
--- NOTE | 2018-12-28 15:49 | NUR ---
CALLED PHARMACY AND TALKED TO YUE, INFORMED HER THAT I NEED TESSALON FOR PT.
--- NOTE | 2018-12-28 16:19 | NUR ---
PT RESTING COMFORTABLY IN BED, DENIES ANY NEEDS AT THIS TIME. CALL LIGHT IN REACH,NAD NOTED.
--- NOTE | 2018-12-28 16:57 | MORECARE ---
CASE MANAGEMENT DISCHARGE SUMMARY PATIENT: RUDOLPH GODWIN UNIT: [id number] ADM DATE: 12/18/18 AGE: 83 : 35 SEX: F ROOM/BED: D.1206 AUTHOR: ANGELICA,DOC PHYSICIAN: REFERRING PHYSICIAN: ORION HOBBS MD DATE OF SERVICE: 12/28/18 Discharge Plan Patient Name: RUDOLPH GODWIN Facility: [facility]:[place] : 1935 Planned Disposition: Home Anticipated Discharge Date: Discharge Date: Expected LOS: Initial Reviewer: [id number] Initial Review Date: 12/20/2018 Generated: 12/28/18 5:57 pm Comments DCP- Discharge Planning Updated by [email or web address]: Jennie Davies on 12/27/18 8:[address] Patient Name: RUDOLPH GODWIN Admission Status: ER Accout number: [id number] Admission Date: 12-18-2018 : 1935 Admission Diagnosis:PNEUMONIA, UNSPECIFIED ORGANISM Attending: ORION HOBBS Current LOS: 9 Anticipated DC Date: Planned Disposition: Home Primary Insurance: MEDICARE A & B Discharge Planning Comments: CM MET WITH PATIENT ABOUT DC PLANS. SHE STATES WANTS TO WAIT FOR HER PT EVAL AND THEN DECIDE. CM WILL FOLLOW UP WITH HER. IM SIGNED Coach Builder: Jennie Davies DCP- Discharge Planning Updated by [id number]: Kristine Sousa on 12/20/18 5:[address] Patient Name: RUDOLPH GODWIN Admission Status: ER Accout number: [id number] Admission Date: 12-18-2018 : 1935 Admission Diagnosis: Attending: ORION HOBBS Current LOS: 2 Anticipated DC Date: Planned Disposition: Home Primary Insurance: MEDICARE A & B Discharge Planning Comments: CM met with patient at bedside. Patient states she plans on returning to her home with her after discharge. Patient states that she has walker and shower chair in the home. Patient states she has had [facility] in the past. Patient denies any discharge needs at this time. CM will continue to follow and assist as needed with discharge planning / needs. Coach Builder: Kristine Sousa DCPIA - Discharge Planning Initial Assessment Updated by [id number]: Kristine Velizr on 12/20/18 6:33 pm * Is the patient Alert and Oriented? Yes * How many steps to enter\exit or inside your home? * PCP Kimberly Figuero[facility]- [facility] * Pharmacy [place] * Preadmission Environment Home with Family * ADLs Independent * Equipment Walker * Other Equipment shower chair * List name and contact numbers for known caregivers / representatives who currently or will assist patient after discharge: Sondra Lizarraga - daughter- [phone] * Verbal permission to speak to the caregivers and representatives has been obtained from the patient. N/A * Community resources currently utilized None * Additional services required to return to the preadmission environment? No * Can the patient safely return to the preadmission environment? Yes * Has this patient been hospitalized within the prior 30 days at any hospital? No Coverage Notice Reviewer: [id number] Amy Davies Notice Issued Date-Time: 12/27/2018 9:19 Notice Type: IM Discharge Notice Notice Delivered To: Patient Relationship to Patient: Self Operator Specialist Communications Name: Delivery Method: HAND - Hand Delivered Radha Days: Prior Verbal Notification: Recipient Understood Notice: Yes Recipient Signature: Yes Med Rec Note Co-signed by Attending: Coverage Notice Comment: Reviewer: [id number] Amy Davies Notice Issued Date-Time: 12/28/2018 16:56 Notice Type: Patient Choice Letter Notice Delivered To: Patient Relationship to Patient: Self Operator Specialist Communications Name: Delivery Method: HAND - Hand Delivered Radha Days: Prior Verbal Notification: Recipient Understood Notice: Yes Recipient Signature: Yes Med Rec Note Co-signed by Attending: Coverage Notice Comment: Radha Braga Last DP export: 12/28/18 2:42 pm Patient Name: RUDOLPH GODWIN Page [id number] at 1657 All edits/amendments must be made on the electronic document DICTATION DATE: 12/28/181655 ODD PIECE CHECKER: ANANDA 12/28/181655 RPT#: [id number] DC DATE: STATUS: ADM IN [facility] [address] [place] [address] END OF REPORT
--- NOTE | 2018-12-28 17:06 | MORECARE ---
CASE MANAGEMENT DISCHARGE SUMMARY PATIENT: RUDOLPH GODWIN UNIT: [id number] ADM DATE: 12/18/18 AGE: 83 : 35 SEX: F ROOM/BED: D.1206 AUTHOR: ANGELICADOC PHYSICIAN: REFERRING PHYSICIAN: ORION HOBBS MD DATE OF SERVICE: 12/28/18 Discharge Plan Patient Name: RUDOLPH GODWIN Facility: [facility]:[place] : 1935 Planned Disposition: Home Anticipated Discharge Date: Discharge Date: Expected LOS: Initial Reviewer: [email or web address] Initial Review Date: 12/20/2018 Generated: 12/28/18 6:06 pm Comments DCP- Discharge Planning Updated by [email or web address]: Jennie Davies on 12/28/18 4:[address] Patient Name: RUDOLPH GODWIN Admission Status: ER Accout number: [id number] Admission Date: 12-18-2018 : 1935 Admission Diagnosis:PNEUMONIA, UNSPECIFIED ORGANISM Attending: ORION HOBBS Current LOS: 10 Anticipated DC Date: Planned Disposition: Home Primary Insurance: MEDICARE A & B Discharge Planning Comments: Patient requests with [facility] in [place]. HORTENSIA signed and documents faxed to in [place] at 5pm. CM to follow and assist as needed with dc planning/needs. Residential Support Worker: Jennie Davies DCP- Discharge Planning Updated by [email or web address]: Jennie Davies on 12/27/18 8:[address] Patient Name: RUDOLPH GODWIN Admission Status: ER Accout number: [id number] Admission Date: 12-18-2018 : 1935 Admission Diagnosis:PNEUMONIA, UNSPECIFIED ORGANISM Attending: ORION HOBBS Current LOS: 9 Anticipated DC Date: Planned Disposition: Home Primary Insurance: MEDICARE A & B Discharge Planning Comments: CM MET WITH PATIENT ABOUT DC PLANS. SHE STATES WANTS TO WAIT FOR HER PT EVAL AND THEN DECIDE. CM WILL FOLLOW UP WITH HER. IM SIGNED Residential Support Worker: Jennie Davies DCP- Discharge Planning Updated by [email or web address]: Kristine Sousa on 12/20/18 5:[address] Patient Name: RUDOLPH GODWIN Admission Status: ER Accout number: [id number] Admission Date: 12-18-2018 : [birth year] Admission Diagnosis: Attending: ORION HOBBS Current LOS: 2 Anticipated DC Date: Planned Disposition: Home Primary Insurance: MEDICARE A & B Discharge Planning Comments: CM met with patient at bedside. Patient states she plans on returning to her home with her after discharge. Patient states that she has walker and shower chair in the home. Patient states she has had [facility] in the past. Patient denies any discharge needs at this time. CM will continue to follow and assist as needed with discharge planning / needs. Residential Support Worker: Kristine Sousa DCPIA - Discharge Planning Initial Assessment Updated by [email or web address]: Kristine Sousa on 12/20/18 6:33 pm * Is the patient Alert and Oriented? Yes * How many steps to enter\exit or inside your home? * PCP Kimberly Figuero[facility]- [facility] * Pharmacy [place] * Preadmission Environment Home with Family * ADLs Independent * Equipment Walker * Other Equipment shower chair * List name and contact numbers for known caregivers / representatives who currently or will assist patient after discharge: Sondra Lizarraga - aria- [phone] * Verbal permission to speak to the caregivers and representatives has been obtained from the patient. N/A * Community resources currently utilized None * Additional services required to return to the preadmission environment? No * Can the patient safely return to the preadmission environment? Yes * Has this patient been hospitalized within the prior 30 days at any hospital? No External Providers External Provider: [facility] Amy Padilla Contact Date: Service Request Date: Service Type: Resolution: Reviewer: Comments: Coverage Notice Reviewer: [id number] Amy Davies Notice Issued Date-Time: 12/27/2018 9:19 Notice Type: IM Discharge Notice Notice Delivered To: Patient Relationship to Patient: Self Battery Assembler Plastic Name: Delivery Method: HAND - Hand Delivered Radha Days: Prior Verbal Notification: Recipient Understood Notice: Yes Recipient Signature: Yes Med Rec Note Co-signed by Attending: Coverage Notice Comment: Reviewer: [id number] Amy Davies Notice Issued Date-Time: 12/28/2018 16:56 Notice Type: Patient Choice Letter Notice Delivered To: Patient Relationship to Patient: Self Battery Assembler Plastic Name: Delivery Method: HAND - Hand Delivered Radha Days: Prior Verbal Notification: Recipient Understood Notice: Yes Recipient Signature: Yes Med Rec Note Co-signed by Attending: Coverage Notice Comment: Radha RICKS Last DP export: 12/28/18 3:57 pm Patient Name: RUDOLPH GODWIN Page [id number] at 1706 All edits/amendments must be made on the electronic document DICTATION DATE: 12/28/181704 MOLD PARTER: ANANDA 12/28/181704 RPT#: [id number] DC DATE: STATUS: ADM IN [facility] [address] [place] [address] END OF REPORT
--- NOTE | 2018-12-28 18:24 | NUR ---
OT NOTE: PT COMPLETED ADL MOB WITH SPV. PT COMPLETED EOB SITTING BALANCE WITH [facility]V. PT COMPLETED TOILETING WITH [facility]. PT COMPLETED SELF FEEDING WITH [facility]. THANK YOU, DANIE LYLES
--- NOTE | 2018-12-28 19:29 | NUR ---
PT RESTING IN BED, NAME AND DATE PLACED ON BOARD. PT WEARING GLASSES WATCHING TV, ASKED FOR NOURISHMENT. ICE WATER GIVEN. RIGHT UPPER ARM 20G IV S/L. PT IS AAO, DENIES ANY NEEDS AT THIS TIME. BEDLOW AND CALL LIGHT IN REACH. WILL CPOC
[2018-12-28 20:23] VITALS: BP 162/54
--- NOTE | 2018-12-28 20:31 | NUR ---
PT BP IS 162/54 HR 55 PT IS SINUS MARC 54 TELEMETRY. PT ON A CARDIZEM 24HR. HAS BEEN TAKING BETAPACE WELL. ON THE 3RD PT DROPPED IN HEART RATE TO SINUS MARC AND CONTINUED TO STAY SB. HOLDING BETAPACE AT THIS TIME BECAUSE OF CONCERN OF HEART RATE. WILL MONITOR HEART RATE THROUGH OUT NIGHT, SPOKE WITH CARDIAC NURSE ESTEBAN REGARDING HR AND NURSE IN AGREEMENT. HOLD BETAPACE FOR NOW AND MONITOR HEART RATE.
--- NOTE | 2018-12-28 21:03 | NUR ---
EDUCATION ON ALL MEDS. PT VERBALIZED UNDERSTANDING. SPOKE WITH PT REGARDING BETAPACE. PT IN AGREEMENT AT THIS TIME. PT HAS NO S/S OF DISTRESS. BEDLOW AND CALL LIGHT IN REACH. WILL CPOC
--- NOTE | 2018-12-28 21:41 | NUR ---
PT IS RUNNING 60 NORMAL SINUS.
--- NOTE | 2018-12-28 22:35 | NUR ---
PT IS SB 54, PT DENIES ANY NEEDS. NO S/S OF DISTRESS. WILL CPOC
--- NOTE | 2018-12-29 00:07 | NUR ---
PT RUNNING 63 NSR ON MONITOR
--- NOTE | 2018-12-29 00:13 | NUR ---
CALLED CARDIO R/T HR ABOVE 60, SPOKE WITH DR JACKSON. HE STATED TO GIVEN BETAPACE TONOSORIO AND THEY WILL ADDRESS CARDIZEM IN THE MORNING. WILL GIVE PT ORDERED BETAPACE AND CPOC
[2018-12-29 00:25] VITALS: BP 161/57
--- NOTE | 2018-12-29 01:30 | NUR ---
PT IS 58 SB
--- NOTE | 2018-12-29 02:35 | NUR ---
PT IS 54 SINUS MARC
--- NOTE | 2018-12-29 03:45 | NUR ---
PT RUNNING 50 SINUS MARC ON THE MONITOR
--- NOTE | 2018-12-29 03:46 | NUR ---
PT ASLEEP, RESP EVEN AND UNLABORED. NO S/S OF DISTRESS. BEDLOW AND CALL LIGHT IN REACH. WILL CPOC
[2018-12-29 04:00] VITALS: BP 146/54
--- NOTE | 2018-12-29 05:49 | NUR ---
PT IS RUNNING 50 SINUS MARC
--- NOTE | 2018-12-29 06:20 | NUR ---
MORNING MEDS GIVEN. PT DENIES ANY NEEDS. NO S/S OF DISTRESS. PT WILL CALL FOR ASSIST WHEN NEEDED. VERBALIZED UNDERSTANDING OF POC.
[2018-12-29 06:58] LABS: BASOPHILS 0.7 % (0-2); EOSINOPHILS 3.6 % (0-7); HEMATOCRIT 34.2 % (36.0-48.0); HEMOGLOBIN 12.2 g/dL (12-16); IMMATURE GRANULOCYTES 0.2 % (0-5); LYMPHOCYTES 29.2 % (15-50); MCH 31.4 pg (26.0-34.0); MCHC 35.7 g/dL (31.0-37.0); MCV 88.1 fL (80.0-100.0); MEAN PLATELET VOLUME 8.9 fL (7.4-10.4); MONOCYTES 8.4 % (2-11); NEUTROPHILS 57.9 % (40-80); PLATELET COUNT 274 10x3/uL (130-400); RBC 3.88 10x6/uL (4.00-5.40); RDW 12.7 % (11.5-14.5); WBC 5.9 10x3/uL (4.8-10.8)
[2018-12-29 07:25] LABS: ALKALINE PHOSPHATASE 42 U/L (46-116); ALT (SGPT) 19 U/L (10-68); CALC OSMOLALITY 272 mosm/kg (275-300); CALCIUM 8.9 mg/dL (8.5-10.1); CHLORIDE - SERUM 99 mmol/L (98-107); CREATININE - SERUM 0.7 mg/dL (0.6-1.3); GLUCOSE 103 mg/dL (74-106); POTASSIUM - SERUM 3.8 mmol/L (3.5-5.1); PROTEIN - SERUM 6.7 g/dL (6.4-8.2); SODIUM 136 mmol/L (136-145); UREA NITROGEN 16 mg/dL (7-18); eGFR NON AFRICAN AMERICAN 85 mL/min (90-120)
--- NOTE | 2018-12-29 07:30 | NUR ---
ASSESSMENT COMPLETE. SL TO RIGHT UPPER ARM. OFFICE INSPECTOR SHOWING SB 51 PER TECH. DENIES ANY NEEDS AT THIS TIME.
[2018-12-29 08:14] VITALS: BP 146/60
[2018-12-29 11:52] VITALS: BP 154/53
--- NOTE | 2018-12-29 12:00 | NUR ---
NO CHANGES NOTED AT THIS TIME.
--- NOTE | 2018-12-29 14:07 | MORECARE ---
CASE MANAGEMENT DISCHARGE SUMMARY PATIENT: RUDOLPH GODWIN UNIT: [id number] ADM DATE: 12/18/18 AGE: 83 : 35 SEX: F ROOM/BED: D.1206 AUTHOR: ANGELICA,DOC PHYSICIAN: REFERRING PHYSICIAN: ORION HOBBS MD DATE OF SERVICE: 12/29/18 Discharge Plan Patient Name: RUDOLPH GODWIN Facility: [facility]:[place] : 1935 Planned Disposition: Home Anticipated Discharge Date: Discharge Date: Expected LOS: Initial Reviewer: [id number] Initial Review Date: 12/20/2018 Generated: 12/29/18 3:06 pm Comments DCP- Discharge Planning Updated by [id number]: Danay Bhardwaj on 12/29/18 1:[address] CM met with patient, her daughter and her grandson in the presence of Gurjit (Physical Toy Assembler) and Dotty (HELTON) about discharge planning / needs. Patient and family are in agreement to patient discharging home with [facility] for nursing and physical therapy. CM called [employer] [facility] and verified with Azra that agency will admit patient tomorrow. CM gave patient / family contact number for [employer] [facility]. Instructed them to expect a call from [facility] between 08:00 and 10:00 tomorrow morning to set an appointment for Home Health Eval. Patient and family verbalized understanding and satisfaction with discharge planning. CM called Dr. Mcclendon and left voice message about status of discharge planning. DCP- Discharge Planning Updated by [id number]: Jennie Davies on 12/28/18 4:[address] Patient Name: RUDOLPH GODWIN Admission Status: ER Accout number: [id number] Admission Date: 12-18-2018 : 1935 Admission Diagnosis:PNEUMONIA, UNSPECIFIED ORGANISM Attending: ORION HOBBS Current LOS: 10 Anticipated DC Date: Planned Disposition: Home Primary Insurance: MEDICARE A & B Discharge Planning Comments: Patient requests HH with [facility] in [place]. HORTENSIA signed and documents faxed to in [place] at 5pm. CM to follow and assist as needed with dc planning/needs. Chief Cloth Finishing Range Operator: Jennie Davies DCP- Discharge Planning Updated by [id number]: Jennie Davies on 12/27/18 8:[address] Patient Name: RUDOLPH GODWIN Admission Status: ER Accout number: [id number] Admission Date: 12-18-2018 : 1935 Admission Diagnosis:PNEUMONIA, UNSPECIFIED ORGANISM Attending: ORION HOBBS Current LOS: 9 Anticipated DC Date: Planned Disposition: Home Primary Insurance: MEDICARE A & B Discharge Planning Comments: CM MET WITH PATIENT ABOUT DC PLANS. SHE STATES WANTS TO WAIT FOR HER PT EVAL AND THEN DECIDE. CM WILL FOLLOW UP WITH HER. IM SIGNED Chief Cloth Finishing Range Operator: Jennie Davies DCP- Discharge Planning Updated by [id number]: Kristine Merry on 12/20/18 5:[address] Patient Name: RUDOLPH GODWIN Admission Status: ER Accout number: [id number] Admission Date: 12-18-2018 : 1935 Admission Diagnosis: Attending: ORION HOBBS Current LOS: 2 Anticipated DC Date: Planned Disposition: Home Primary Insurance: MEDICARE A & B Discharge Planning Comments: CM met with patient at bedside. Patient states she plans on returning to her home with her after discharge. Patient states that she has walker and shower chair in the home. Patient states she has had [facility] in the past. Patient denies any discharge needs at this time. CM will continue to follow and assist as needed with discharge planning / needs. Chief Cloth Finishing Range Operator: Kristine Sousa DCPIA - Discharge Planning Initial Assessment Updated by [id number]: Kristine Sousa on 12/20/18 6:33 pm * Is the patient Alert and Oriented? Yes * How many steps to enter\exit or inside your home? * PCP Kimberly [facility]ero[facility]- [facility] * Pharmacy [place] * Preadmission Environment Home with Family * ADLs Independent * Equipment Walker * Other Equipment shower chair * List name and contact numbers for known caregivers / representatives who currently or will assist patient after discharge: Sondra Lizarraga - daughter- [phone] * Verbal permission to speak to the caregivers and representatives has been obtained from the patient. N/A * Community resources currently utilized None * Additional services required to return to the preadmission environment? No * Can the patient safely return to the preadmission environment? Yes * Has this patient been hospitalized within the prior 30 days at any hospital? No Coverage Notice Reviewer: [email or web address] Amy Davies Notice Issued Date-Time: 12/27/2018 9:19 Notice Type: IM Discharge Notice Notice Delivered To: Patient Relationship to Patient: Self Hacksaw Inspector Name: Delivery Method: HAND - Hand Delivered Radha Days: Prior Verbal Notification: Recipient Understood Notice: Yes Recipient Signature: Yes Med Rec Note Co-signed by Attending: Coverage Notice Comment: Reviewer: [id number] Amy Davies Notice Issued Date-Time: 12/28/2018 16:56 Notice Type: Patient Choice Letter Notice Delivered To: Patient Relationship to Patient: Self Hacksaw Inspector Name: Delivery Method: HAND - Hand Delivered Radha Days: Prior Verbal Notification: Recipient Understood Notice: Yes Recipient Signature: Yes Med Rec Note Co-signed by Attending: Coverage Notice Comment: Radha RICKS Last DP export: 12/28/18 4:06 pm Patient Name: RUDOLPH GODWIN Page [id number] at 1407 All edits/amendments must be made on the electronic document DICTATION DATE: 12/29/18 1406 HEAVY ANTIARMOR WEAPONS INFANTRYMAN: ANANDA 12/29/18 1406 RPT#: [id number] DC DATE: STATUS: ADM IN [facility] [address] [place] [address] END OF REPORT
--- NOTE | 2018-12-29 15:00 | NUR ---
VISITING WITH FAMILY. NO CHANGES NOTED AT THIS TIME.
[2018-12-29 16:07] VITALS: BP 142/42
[2018-12-29] MEDS ORDERED: BETAPACE 80 MG80 MG PO (16:19)
[2018-12-29] MEDS ORDERED: CARDIZEM30 MG PO (16:19)
[2018-12-29] MEDS ORDERED: LASIX20 MG PO (16:20)
[2018-12-29] MEDS ORDERED: K-DUR20 MEQ PO (16:20)
[2018-12-29] MEDS ORDERED: OMNICEF300 MG PO (16:21)
[2018-12-29] MEDS ORDERED: VIBRAMYCIN 100100 MG PO (16:22)
--- NOTE | 2018-12-29 17:00 | NUR ---
AGILITY INSTRUCTOR REMOVED. SL REMOVED. CATHETER TIP INTACT. DISCHARGE TEACHING GIVEN TO PATIENT AND FAMILY. VOICED UNDERSTANDING.
--- NOTE | 2018-12-29 17:05 | NUR ---
DC'D HOME WITH FAMILY. ESCORTED TO VEHICLE BY RESEARCH AND DEVELOPMENT CHEMIST VIA WC WITH BELONGINGS.
--- NOTE | 2018-12-29 22:52 | NUR ---
OT NOTE: PT COMPLETED BED MOB WITH SPV. PT COMPLETED ADL MOB WITH SPV. PT REQUIRED MIN A TO GREGG DOFF SOCKS. THANK YOU, DANIE LYLES
--- NOTE | 2018-12-30 08:46 | MORECARE ---
CASE MANAGEMENT DISCHARGE SUMMARY PATIENT: RUDOLPH GODWIN UNIT: [id number] ADM DATE: 12/18/18 AGE: 83 : 35 SEX: F ROOM/BED: D.1206 AUTHOR: ANGELICA,DOC PHYSICIAN: REFERRING PHYSICIAN: ORION HOBBS MD DATE OF SERVICE: 12/30/18 Discharge Plan Patient Name: RUDOLPH GODWIN Facility: [facility]:[place] : 1935 Planned Disposition: Home Anticipated Discharge Date: Discharge Date: 12/29/2018 Expected LOS: Initial Reviewer: [email or web address] Initial Review Date: 12/20/2018 Generated: 12/30/18 9:46 am Comments DCP- Discharge Planning Updated by [email or web address]: Danay Bhardwaj on 12/29/18 1:[address] CM met with patient, her daughter and her grandson in the presence of Gurjit (Physical Psychological Science Professor) and Dotty (HELTON) about discharge planning / needs. Patient and family are in agreement to patient discharging home with [facility] for nursing and physical therapy. CM called [facility] and verified with Azra that agency will admit patient tomorrow. CM gave patient / family contact number for [facility]. Instructed them to expect a call from [facility] between 08:00 and 10:00 tomorrow morning to set an appointment for Home Health Eval. Patient and family verbalized understanding and satisfaction with discharge planning. CM called Dr. Mcclendon and left voice message about status of discharge planning. DCP- Discharge Planning Updated by [email or web address]: Jennie Davies on 12/28/18 4:[address] Patient Name: RUDOLPH GODWIN Admission Status: ER Accout number: [id number] Admission Date: 12-18-2018 : 1935 Admission Diagnosis:PNEUMONIA, UNSPECIFIED ORGANISM Attending: ORION HOBBS Current LOS: 10 Anticipated DC Date: Planned Disposition: Home Primary Insurance: MEDICARE A & B Discharge Planning Comments: Patient requests HH with [facility] in [place]. HORTENSIA signed and documents faxed to in [place] at 5pm. CM to follow and assist as needed with dc planning/needs. Exterior Interior Specialist: Jennie Davies DCP- Discharge Planning Updated by [id number]: Jennie Davies on 12/27/18 8:[address] Patient Name: RUDOLPH GODWIN Admission Status: ER Accout number: [id number] Admission Date: 12-18-2018 : 1935 Admission Diagnosis:PNEUMONIA, UNSPECIFIED ORGANISM Attending: ORION HOBBS Current LOS: 9 Anticipated DC Date: Planned Disposition: Home Primary Insurance: MEDICARE A & B Discharge Planning Comments: CM MET WITH PATIENT ABOUT DC PLANS. SHE STATES WANTS TO WAIT FOR HER PT EVAL AND THEN DECIDE. CM WILL FOLLOW UP WITH HER. IM SIGNED Exterior Interior Specialist: Jennie Davies DCP- Discharge Planning Updated by [email or web address]: Kristine Sousa on 12/20/18 5:[address] Patient Name: RUDOLPH GODWIN Admission Status: ER Accout number: [id number] Admission Date: 12-18-2018 : 1935 Admission Diagnosis: Attending: ORION HOBBS Current LOS: 2 Anticipated DC Date: Planned Disposition: Home Primary Insurance: MEDICARE A & B Discharge Planning Comments: CM met with patient at bedside. Patient states she plans on returning to her home with her after discharge. Patient states that she has walker and shower chair in the home. Patient states she has had [facility] in the past. Patient denies any discharge needs at this time. CM will continue to follow and assist as needed with discharge planning / needs. Exterior Interior Specialist: Kristine Sousa DCPIA - Discharge Planning Initial Assessment Updated by [email or web address]: Kristine Sousa on 12/20/18 6:33 pm * Is the patient Alert and Oriented? Yes * How many steps to enter\exit or inside your home? * PCP Kimberly Figueroa- [facility] * Pharmacy [place] * Preadmission Environment Home with Family * ADLs Independent * Equipment Walker * Other Equipment shower chair * List name and contact numbers for known caregivers / representatives who currently or will assist patient after discharge: Sondra Lizarraga - daughter- [phone] * Verbal permission to speak to the caregivers and representatives has been obtained from the patient. N/A * Community resources currently utilized None * Additional services required to return to the preadmission environment? No * Can the patient safely return to the preadmission environment? Yes * Has this patient been hospitalized within the prior 30 days at any hospital? No Coverage Notice Reviewer: [email or web address] Amy Davies Notice Issued Date-Time: 12/27/2018 9:19 Notice Type: IM Discharge Notice Notice Delivered To: Patient Relationship to Patient: Self Curtain Supervisor Name: Delivery Method: HAND - Hand Delivered Radha Days: Prior Verbal Notification: Recipient Understood Notice: Yes Recipient Signature: Yes Med Rec Note Co-signed by Attending: Coverage Notice Comment: Reviewer: [email or web address] Amy Davies Notice Issued Date-Time: 12/28/2018 16:56 Notice Type: Patient Choice Letter Notice Delivered To: Patient Relationship to Patient: Self Curtain Supervisor Name: Delivery Method: HAND - Hand Delivered Radha Days: Prior Verbal Notification: Recipient Understood Notice: Yes Recipient Signature: Yes Med Rec Note Co-signed by Attending: Coverage Notice Comment: Radha Ordonez DP export: 12/29/18 1:07 pm Patient Name: RUDOLPH GODWIN Page [id number] at 0846 All edits/amendments must be made on the electronic document DICTATION DATE: 12/30/1845 BUNCHER MACHINE: ANANDA 12/30/1845 RPT#: [id number] DC DATE:12/29/18 STATUS: DIS IN [facility] [address] [place] [address] END OF REPORT
== END 2018-12-29 17:05 | disposition home health service (06) | DRG 291 ==
LOC: D.ER 16:46 → D.MS 18:24 → D.ICU 18:24 → D.EDHOLD 18:24 → D.MS 18:52 → D.ICU 12-20 03:59 → D.M3 12-24 15:08
PROVIDERS: Family Medicine; Internal Medicine Pulmonary Disease; ADMIT Internal Medicine Nephrology
PROC: 5A09357 Assistance with Respiratory Ventilation, Less than 24 Consecutive Hours, Continuous Positive Airway Pressure (ICD-10-PCS; principal; 2018-12-20)
DX: I11.0 Hypertensive heart disease with heart failure (principal); J18.9 Pneumonia, unspecified organism; I50.31 Acute diastolic (congestive) heart failure; J96.01 Acute respiratory failure with hypoxia; I48.91 Unspecified atrial fibrillation; E87.6 Hypokalemia; D50.9 Iron deficiency anemia, unspecified; I25.10 Atherosclerotic heart disease of native coronary artery without angina pectoris; E83.42 Hypomagnesemia; J01.90 Acute sinusitis, unspecified; E78.5 Hyperlipidemia, unspecified; D72.829 Elevated white blood cell count, unspecified; G47.33 Obstructive sleep apnea (adult) (pediatric); R53.81 Other malaise

== ENCOUNTER → 2021-01-27 10:28 | Outpatient (CLI) | payer MEDICARE, BC ==
[2018-12-20 09:33] VITALS: BMI 29.0
--- NOTE | ~2021-01-27 | EC ---
PATIENT:RUDOLPH GODWIN DATE OF SERVICE: 01/27/21 SEX: F MEDICAL RECORD: [id number] DATE OF : [birth year] [facility] AGE OF PATIENT: 85 ADMISSION DATE: 01/27/21 REFERRING PHYSICIAN: INTERPRETING PHYSICIAN: MC WINTERS MD ECHOCARDIOGRAM REPORT ECHO CHARGES 4 ECHO COMPLETE Date: 01/27/21 CLINICAL DIAGNOSIS: PULMONARY HTN ECHOCARDIOGRAPHIC MEASUREMENTS (adult normal given) AC root (d.<3.7cm) 2.7 cm LV Septum d (<1.2 cm> 1.0 cm Valve Excursion 1.6 cm LV Septum (systole) 1.2 cm Left Atria (s.<4.0cm> 3.9 cm LVPW d(<1.2cm) 1.0 cm RV (d.<2.3cm) 2.3 cm LVPW (sytole) 1.2 cm LV diastole(<5.6CM) 5.0 cm MV E-F(>70mm/sec) cm LV systole 3.9 cm LVOT Diameter 1.6 cm MV exc.(>10mm) 0.6 cm Est.ejection fraction (50-75%) % DOPPLER: LVIT cm/sec A 138 cm/sec E 114 cm/sec LA cm/sec RVSP 26 mmHg LVOT 164 cm/sec AOP1/2T m/s Asc. Ao 174 cm/sec RVOT 93 cm/sec RA cm/sec PA 97 cm/sec AV Gradient Peak 12.1 mmHg AV Mean 5.6 mmHg AV Area 2.2 cm MV Gradient Peak 15.2 mmHg MV Mean 5.8 mmHg MV Area cm COMMENTS: Home Help Aide: Yoselin [facility] [address] Freight: 3 Dr. Esquivel TAPE# Pericardial Effusion Y DATE OF SERVICE: Adequate 2D, color-flow imaging, spectral Doppler, and M-Mode FINDINGS: No LVH. LV internal dimensions are normal. Wall motion was normal. EF is greater than or equal to 55%. Aortic valve is tricuspid. No evidence of stenosis by Doppler interrogation. Mild AI by color-flow imaging. Left atrium is normal at 3.9 cm. Mitral valve shows no prolapse. Trace MR. Right side is grossly normal. Mild TR. RV systolic pressure is estimated greater than or equal to 26 mmHg via the continuity equation. ECHOCARDIOGRAM REPORT [id number] RUDOLPH GODWIN TRANSINT:[id number] Voice Confirmation ID: [id number] DOCUMENT ID: [id number] MC WINTERS MD CC: [id number] DICTATION DATE: 01/28/21801 SCHEDULE SUPERVISOR: 01/28/21 1149 DEP CLI 01/27/21 [place] [id number] [place] [id number]
[~2021-01-27 10:28] MED LIST changes: +ASCORBIC ACID500 MG PO; +BETAPACE 80 MG80 MG PO; +CARDIZEM30 MG PO; +FEXOFENADINE H180 MG PO; +K-DUR20 MEQ PO; +LASIX20 MG PO; +MOBIC7.5 MG PO; +NORMODYNE / TR100 MG PO; +NORVASC10 MG PO; +OMNICEF300 MG PO; +VIBRAMYCIN 100100 MG PO
== END | disposition home or self-care (01) ==
LOC: D.ECHO 10:28
PROVIDERS: ATTEND Internal Medicine Pulmonary Disease
DX: I27.21 Secondary pulmonary arterial hypertension (principal)